=== PATIENT | female | born 1940 | race Caucasian/White ===

== ENCOUNTER 2018-04-21 19:25 | Inpatient (IN) | payer MEDICARE, BC ==
--- NOTE | 2018-04-21 20:03 | EDM.PDOC ---
ED HPI GENERAL MEDICAL PROBLEM - General Chief Complaint: Cardiovascular Problem Stated Complaint: SOB/SENT BY ENRIQUE KELLY Time Seen by Provider: 04/21/18 19:59 Source of Information: Reports: Patient, Family History Limitations: Reports: No Limitations - History of Present Illness INITIAL COMMENTS - FREE TEXT/NARRATIVE: pt was seen at the clinic today and was found to have a complete heart beat. She did have lab work done at the clinic today. She is feeling tired but she is not in alot trouble Onset: Other ( The block was discovered today. ) Duration: Hour(s):, Other (pt has been very fatiqued. ) Location: Reports: Chest Associated Symptoms: Reports: No Other Symptoms Left Upper Chest Pain Score (Numeric/FACES): 8 denies pain Pain Score (Numeric/FACES): 0 - Related Data Allergies Allergy/AdvReac Type Severity Reaction Status Date / Time Egg Derived Allergy Cannot Verified 06/04/17 10:13 Remember NSAIDS (Non-Steroidal Allergy Cannot Verified 06/04/17 10:13 Anti-Inflamma Remember Home Meds: Home Meds Folic Acid 1 mg PO DAILY 04/21/15 [History] Methotrexate Sodium [Methotrexate] 3 tab PO WEEKLY 04/21/15 [History] Valsartan/Hydrochlorothiazide [Valsartan-Hctz 320-25 mg Tab] 1 tab PO DAILY 04/30 [History] Fluticasone/Salmeterol [Advair 250-50 Diskus] 1 puff INH BID 04/21/18 [History] Past Medical History Cardiovascular History: Reports: Hypertension 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 ) Cardiovascular: Reports: Dyspnea on Exertion Endocrine: Reports: Fatigue GI/Abdominal: Reports: No Symptoms : Reports: No Symptoms Musculoskeletal: Reports: No Symptoms Skin: Reports: No Symptoms Neurological: Reports: No Symptoms Psychiatric: Reports: No Symptoms Hematologic/Lymphatic: Reports: No Symptoms ED EXAM, GENERAL - Physical Exam Exam: See Below Free Text/Narrative:: Pt arrived with a history of acomplete heart block which was discovered at the clinic today. She has a history of extreme fatique for about 10 days. Exam Limited By: No Limitations General Appearance: Alert, No Apparent Distress Ears: Normal TMs Nose: Normal Inspection Throat/Mouth: Normal Inspection Neck: Normal Inspection Respiratory/Chest: No Respiratory Distress, Other (pt has sob with activity. ) Cardiovascular: Regular Rate, Rhythm, Systolic Murmur, Other ( heart rate is 37. pt has a grade 3 systolic murmur which is not new for her. ) GI/Abdominal: Soft, Non-Tender (Female) Exam: Deferred Rectal (Female) Exam: Deferred Back Exam: Normal Inspection Extremities: Normal Inspection Neurological: Alert, Oriented, Normal Cognition Psychiatric: Normal Affect Course - Vital Signs Last Recorded V/S: Last Vital Signs Temp 35.3 C 04/23/18 04:00 Pulse 71 04/23/18 07:09 Resp 18 04/23/18 06:00 BP 133/47 L 04/23/18 06:00 Pulse Ox 97 04/23/18 06:00 - Orders/Labs/Meds Orders: Medication Orders Acetaminophen (Tylenol) 650 mg PO Q6H [facility] Last Admin: 04/23/18 03:16 Dose: 650 mg Admin: 04/22/18 22:04 Dose: Admin: 04/22/18 20:51 Dose: 650 mg Admin: 04/22/18 15:11 Dose: 650 mg Albuterol/Ipratropium (Duoneb 3.0-0.5 Mg/3 Ml) 3 ml INH QIDRT [facility] Last Admin: 04/23/18 07:09 Dose: 3 ml Admin: 04/22/18 20:50 Dose: 3 ml Admin: 04/22/18 14:34 Dose: 3 ml Albuterol/Ipratropium (Duoneb 3.0-0.5 Mg/3 Ml) 3 ml INH ASDIRECTED PRN PRN Reason: * Doxycycline Hyclate (Vibramycin) 100 mg PO BID [facility] Last Admin: 04/22/18 20:51 Dose: 100 mg Hydralazine HCl (Apresoline) 25 mg PO Q8H [facility] Last Admin: 04/22/18 23:00 Dose: 25 mg Admin: 04/22/18 15:11 Dose: 25 mg Hydrochlorothiazide (Hydrochlorothiazide) 12.5 mg PO DAILY [facility] Cefazolin Sodium/Dextrose 1 gm (/ Premix) 50 mls @ 100 mls/hr IV Q8H KARIE Stop: 04/23/18 10:29 Last Admin: 04/23/18 01:38 Dose: 100 mls/hr Infusion: 04/22/18 17:45 Dose: 100 mls/hr Admin: 04/22/18 17:15 Dose: 100 mls/hr Dextrose/Lactated Ringer's (Dextrose 5%-Lactated Ringers) 1,000 mls @ 80 mls/ hr IV ASDIRECTED [facility] Last Admin: 04/23/18 04:42 Dose: 80 mls/hr Infusion: 04/23/18 03:37 Dose: 80 mls/hr Admin: 04/22/18 15:07 Dose: 80 mls/hr Mometasone Furoate/Formoterol Fumar (Dulera 200-5 Mcg) 2 puff IH BIDRT [facility] Last Admin: 04/23/18 07:09 Dose: 2 puff Admin: 04/22/18 20:50 Dose: 2 puff Admin: 04/22/18 07:23 Dose: 2 puff Montelukast Sodium (Singulair) 10 mg PO BEDTIME [facility] Last Admin: 04/22/18 20:51 Dose: 10 mg Ondansetron HCl (Zofran) 4 mg IV Q4H PRN PRN Reason: Nausea/Vomiting Pantoprazole Sodium (Protonix) 40 mg PO ACBREAKFAST [facility] Tramadol HCl (Ultram) 50 mg PO Q4H PRN PRN Reason: Pain Valsartan (Diovan) 160 mg PO DAILY [facility] Labs: Laboratory Tests 04/21/18 04/21/18 Range/Units 19:49 20:17 Troponin I 0.021 (0.000-0.056) ng/mL TSH, Ultra Sensitive 1.027 (0.358-3.740) uIU/mL Meds: Medications Generic Name Dose Route Start Last Admin Trade Name Freq PRN Reason Stop Dose Admin Acetaminophen 650 mg 04/22/18 16:00 04/23/18 03:16 Tylenol PO 650 mg Q6H [facility] Administration Albuterol/Ipratropium 3 ml 04/22/18 15:00 04/23/18 07:09 Duoneb 3.0-0.5 Mg/3 Ml INH 3 ml QIDRT KARIE Administration Albuterol/Ipratropium 3 ml 04/22/18 14:31 Duoneb 3.0-0.5 Mg/3 Ml INH ASDIRECTED PRN * Doxycycline Hyclate 100 mg 04/22/18 21:00 04/22/18 20:51 Vibramycin PO 100 mg BID KARIE Administration Hydralazine HCl 25 mg 04/22/18 15:00 04/22/18 23:00 Apresoline PO 25 mg Q8H KARIE Administration Hydrochlorothiazide 12.5 mg 04/23/18 09:00 Hydrochlorothiazide PO DAILY KARIE Cefazolin Sodium/Dextrose 1 gm 50 mls @ 100 mls/hr 04/22/18 18:00 04/23/18 01 :38 / Premix IV 04/23/18 10:29 100 mls/hr Q8H KARIE Administration Dextrose/Lactated Ringer's 1,000 mls @ 80 mls/hr 04/22/18 14:45 04/23/18 04: 42 Dextrose 5%-Lactated Ringers IV 80 mls/hr ASDIRECTED KARIE Administration Mometasone Furoate/Formoterol Fumar 2 puff 04/22/18 07:00 04/23/18 07:09 Dulera 200-5 Mcg IH 2 puff BIDRT KARIE Administration Montelukast Sodium 10 mg 04/22/18 21:00 04/22/18 20:51 Singulair PO 10 mg BEDTIME KARIE Administration Ondansetron HCl 4 mg 04/22/18 14:29 Zofran IV Q4H PRN Nausea/Vomiting Pantoprazole Sodium 40 mg 04/23/18 07:30 Protonix PO ACBREAKFAST KARIE Tramadol HCl 50 mg 04/22/18 14:31 Ultram PO Q4H PRN Pain Valsartan 160 mg 04/23/18 09:00 Diovan PO DAILY KARIE Discontinued Medications Generic Name Dose Route Start Last Admin Trade Name Freq PRN Reason Stop Dose Admin Acetaminophen 650 mg 04/21/18 22:03 Tylenol PO Q4H PRN Pain (Mild 1-3)/fever Albuterol 2.5 mg 04/21/18 22:03 Proventil Neb Soln NEB Q4H PRN Shortness Of Breath/wheezing Albuterol/Ipratropium Confirm 04/22/18 14:28 04/22/18 14:35 Duoneb 3.0-0.5 Mg/3 Ml Administered 04/22/18 14:29 Not Given Dose 3 ml .ROUTE .STK-MED ONE Bupivacaine HCl Confirm 04/22/18 09:18 04/22/18 11:40 Marcaine 0.5% Administered 04/22/18 09:19 3.5 ml Dose Administration 50 ml .ROUTE .STK-MED ONE Fentanyl Confirm 04/22/18 09:54 Sublimaze Administered 04/22/18 09:55 Dose 100 mcg .ROUTE .STK-MED ONE Folic Acid 1 mg 04/22/18 09:00 04/22/18 09:00 Folic Acid PO Not Given DAILY [facility] Hydrochlorothiazide 25 mg 04/22/18 09:00 04/22/18 08:49 Hydrochlorothiazide PO Not Given DAILY KARIE Lactated Ringer's 1,000 mls @ 75 mls/hr 04/21/18 23:00 04/21/18 23:19 Ringers, Lactated IV 75 mls/hr ASDIRECTED KARIE Administration Potassium Phosphate 30 mmole/ 260 mls @ 60 mls/hr 04/22/18 08:00 04/22/18 08: 00 Sodium Chloride IV 04/22/18 12:19 60 mls/hr ONETIME ONE Administration Magnesium Sulfate 2 gm/ Premix 50 mls @ 12.5 mls/hr 04/22/18 08:00 04/22/18 08:29 IV 04/22/18 11:59 12.5 mls/hr ONETIME ONE Administration Cefazolin Sodium/Dextrose 2 gm 50 mls @ 100 mls/hr 04/22/18 11:00 04/22/18 11 :14 / Premix IV 04/22/18 11:29 100 mls/hr ONCALL ONE Administration Potassium Chloride 20 meq/ 112 mls @ 50 mls/hr 04/22/18 08:30 Lidocaine HCl 2 ml/ Sodium IV 04/22/18 10:29 Chloride Q2H KARIE Linezolid Confirm 04/22/18 09:18 Zyvox Administered 04/22/18 09:19 Dose 300 mls @ as directed .ROUTE .STK-MED ONE Lactated Ringer's Confirm 04/22/18 12:39 Ringers, Lactated Administered 04/22/18 12:40 Dose 1,000 mls @ as directed .ROUTE .STK-MED ONE Lidocaine/Epinephrine Confirm 04/22/18 09:18 04/22/18 11:40 Xylocaine 1% With Epinephrine 1:100,000 Administered 04/22/18 09:19 3.5 ml Dose Administration 50 ml .ROUTE .STK-MED ONE Linezolid 600 mg 04/22/18 12:42 04/22/18 12:42 Zyvox IRR 04/22/18 12:43 600 mg .STK-MED ONE Administration Midazolam HCl Confirm 04/22/18 09:54 Versed 1 Mg/Ml Administered 04/22/18 09:55 Dose 2 mg .ROUTE .STK-MED ONE Mometasone Furoate/Formoterol Fumar 2 puff 04/21/18 22:15 04/21/18 23:31 Dulera 200-5 Mcg IH 2 inh BID KARIE Administration Ondansetron HCl 4 mg 04/21/18 22:03 Zofran Odt PO Q6H PRN Nausea able to take PO Ondansetron HCl 4 mg 04/21/18 22:03 Zofran IV Q6H PRN Nausea/Vomiting Oxycodone HCl 5 mg 04/21/18 22:03 Oxycodone PO Q4H PRN Pain (moderate 4-6) Polyethylene Glycol 17 gm 04/21/18 22:03 Miralax PO DAILY PRN Constipation Propofol Confirm 04/22/18 09:54 Diprivan 20 Ml Administered 04/22/18 09:55 Dose 200 mg .ROUTE .STK-MED ONE Propofol Confirm 04/22/18 12:38 Diprivan 20 Ml Administered 04/22/18 12:39 Dose 200 mg .ROUTE .STK-MED ONE Senna/Docusate Sodium 1 tab 04/21/18 22:03 Senna Plus PO BID PRN Constipation Sodium Chloride 10 ml 04/21/18 20:45 04/21/18 23:19 Saline Flush FLUSH 10 ml ASDIRECTED PRN Administration Keep Vein Open Valsartan 320 mg 04/22/18 09:00 04/22/18 08:49 Diovan PO Not Given DAILY KARIE - Re-Assessments/Exams Free Text/Narrative Re-Assessment/Exam: 04/21/18 20:41 ekg shows a complete heart block with a rate of 37. She is sob. with activities 04/21/18 20:51 . Her lab work looked good. Departure - Departure Time of Disposition: 20:52 Disposition: Admitted As Inpatient 64 Condition: Fair Clinical Impression: Complete heart block by electrocardiogram Rheumatoid arthritis Qualifiers: Rheumatoid arthritis location: multiple sites Rheumatoid factor presence: unspecified presence Qualified Code(s): M06.9 - Rheumatoid arthritis, unspecified Aortic stenosis Qualifiers: Cardiac valve disease etiology: etiology unspecified Qualified Code(s): I35.0 - Nonrheumatic aortic (valve) stenosis
[2018-04-21] MEDS ORDERED: Sodium Chloride 0.9% 10 ML Syringe FLUSH PRN (20:45)
--- NOTE | 2018-04-21 21:16 | PCM.HP ---
H&P History of Present Illness - General Date of Service: 04/21/18 Admit Problem/Dx: Admission Diagnosis/Problem Admission Diagnosis/Problem Complete heart block by electrocardiogram Source of Information: Patient, Family, Provider History Limitations: Reports: No Limitations - History of Present Illness Initial Comments - Free Text/Narative: Michell presented to the emergency room this evening at the recommendation of her primary care provider after he discovered third-degree heart block on her electrocardiogram this afternoon. She reports that she has been fatigued for at least the last week and more likely the last 2 or 3 weeks. She has had an increase in her dyspnea with exertion and has been sleeping 12 hours per day and does not feel rested. She is sleepy all day long and unable to complete some of her ADLs because of her fatigue. She does not recall any episodes of chest pain or chest pressure over the past several months. She has not had any fevers or chills. No complaints of abdominal pain or nausea. No dysuria or frequency. No history of heart disease. She has never had surgery before. No recent tick exposure that she is aware of. No new medications. Workup in the emergency room revealed fairly normal laboratory studies. EKG and cardiac monitoring revealed third-degree heart block with a heart rate in the low to mid 30s. She will be admitted for permanent pacemaker insertion. - Related Data Allergies/Adverse Reactions: Allergies Allergy/AdvReac Type Severity Reaction Status Date / Time Egg Derived Allergy Cannot Verified 06/04/17 10:13 Remember NSAIDS (Non-Steroidal Allergy Cannot Verified 06/04/17 10:13 Anti-Inflamma Remember Home Medications: Home Meds Folic Acid 1 mg PO DAILY 04/21/15 [History] Methotrexate Sodium [Methotrexate] 3 tab PO WEEKLY 04/21/15 [History] Valsartan/Hydrochlorothiazide [Valsartan-Hctz 320-25 mg Tab] 1 tab PO DAILY 04/30 [History] Fluticasone/Salmeterol [Advair 250-50 Diskus] 1 puff INH BID 04/21/18 [History] Past Medical History Cardiovascular History: Reports: Hypertension Other Cardiovascular History: mitral valve stenosis. tricuspid regergitation. aortic stenosis. 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 Pertinent positives and negatives are noted in the history of present illness. All other systems were reviewed and were negative except as noted. Exam - Exam Exam: See Below - Vital Signs Vital Signs: Last Vital Signs Temp 36.8 C 04/21/18 19:47 Pulse 85 04/21/18 20:59 Resp 19 04/21/18 20:59 BP 175/125 H 04/21/18 20:59 Pulse Ox 97 04/21/18 20:59 - Exam Quality Assessment: No: Supplemental Oxygen General: Alert, Oriented, Cooperative. No: Mild Distress HEENT: Conjunctiva Clear. No: Mucosa Moist & [place] (dry), Scleral Icterus Neck: Supple, Trachea Midline. No: Lymphadenopathy Lungs: Clear to Auscultation, Normal Respiratory Effort Cardiovascular: Regular Rhythm, Bradycardia, Systolic Murmur (harsh BRIGITTE RUSB) GI/Abdominal Exam: Normal Bowel Sounds, Soft, Non-Tender, No Distention Back Exam: Decreased Range of Motion. No: Normal Inspection (kyphosis) Extremities: No Pedal Edema, Other (ulna deviation of digits on both hands) Peripheral Pulses: 1+: Dorsalis Pedis (L), Dorsalis Pedis (R) Skin: Warm, Dry Neuro Extensive - Mental Status: Alert, Oriented x3, Nl Response to Commands Neuro Extensive - Motor, Sensory, Reflexes: CN II-XII Intact. No: Dysarthria, Abnormal Motor, Tremor Psychiatric: Alert, Normal Affect - Patient Data Lab Results Last 24 hrs: Laboratory Results - last 24 hr 04/21/18 04/21/18 Range/Units 19:49 20:17 Troponin I 0.021 (0.000-0.056) ng/mL TSH, Ultra Sensitive 1.027 (0.358-3.740) uIU/mL Imaging Impressions Last 24 hrs: CXR - images personally reviewed - heart size is normal, no mass, infiltrate or effusion. No CHF. EKG INTERPRETATION EKG Date: 04/21/18 Rhythm: Other (3rd degree heart block) Rate (Beats/Min): 38 [place]: LAD-Left [place] Deviation P-Wave: Present QRS: LBBB ST-T: Normal QT: Normal Comparison: Change From Previous EKG *Q Meaningful Use (ADM) - VTE *Q VTE Pharmacological Contraindications *Q: Patient Scheduled Surgery - VTE Risk Assess *Q Each Risk Factor Represents 1 Point: Minor Surgery Planned, Abnormal Pulmonary Function (COPD) Total Score 1 Point Risk Factors: 2 Each Risk Factor Represents 2 Points: None Total Score 2 Point Risk Factors: 0 Each Risk Factor Represents 3 Points: Age 75 Years or Greater Total Score 3 Point Risk Factors: 3 Each Risk Factor Represents 5 Points: None Total Score 5 Point Risk Factors: 0 Venous Thromboembolism Risk Factor Score *Q: 5 - Problem List (1) Complete heart block by electrocardiogram SNOMED Code(s): 639965460 ICD Code: I44.2 - ATRIOVENTRICULAR BLOCK, COMPLETE Status: Acute Current Visit: Yes (2) Rheumatoid arthritis SNOMED Code(s): 46954532 ICD Code: M06.9 - RHEUMATOID ARTHRITIS, UNSPECIFIED Status: Chronic Current Visit: Yes Qualifiers: Rheumatoid arthritis location: multiple sites Rheumatoid factor presence: unspecified presence Qualified Code(s): M06.9 - Rheumatoid arthritis, unspecified (3) Aortic stenosis SNOMED Code(s): 64372140 ICD Code: I35.0 - NONRHEUMATIC AORTIC (VALVE) STENOSIS Status: Chronic Current Visit: Yes Qualifiers: Cardiac valve disease etiology: etiology unspecified Qualified Code(s): I35.0 - Nonrheumatic aortic (valve) stenosis (4) Tobacco dependence SNOMED Code(s): 22731949 ICD Code: F17.200 - NICOTINE DEPENDENCE, UNSPECIFIED, UNCOMPLICATED Status : Chronic Current Visit: Yes Problem List Initiated/Reviewed/Updated: Yes Orders Last 24hrs: Active Orders 24 hr Category Date Time Status Patient Status Manage Transfer [TRANSFER] Routine ADT 04/21/18 21:06 Ordered EKG Documentation Completion [RC] ASDIRECTED Care 04/21/18 19:50 Active Chest 1V Frontal [CR] Stat Exams 04/21/18 19:57 Taken Sodium Chloride 0.9% [Saline Flush] Med 04/21/18 20:45 Active 10 ml FLUSH ASDIRECTED PRN Saline Lock Insert [OM.PC] Routine Oth 04/21/18 20:45 Ordered Resuscitation Status Routine Resus Stat 04/21/18 21:07 Ordered EKG 12 Lead [EK] Routine Ther 04/21/18 19:50 Ordered Medication Orders Sodium Chloride (Saline Flush) 10 ml FLUSH ASDIRECTED PRN PRN Reason: Keep Vein Open Assessment/Plan Comment:: ASSESSMENT AND PLAN - Third degree heart block - symptomatic with fatigue and dyspnea on exertion. No evidence for ischemia and no recent symptoms to suggest ischemic heart disease. She does have a history of rheumatoid arthritis. Not on rate slowing medications. No history of surgeries. I believe she is in optimal achievable medical condition for the somewhat urgent surgery. -Cardiac monitoring -Pacemaker placement in the morning Moderate aortic stenosis - long-standing issue, no reason to suspect acute progression of this disease. Should not be a contraindication to the procedure. -Cardiac monitoring and management as above Rheumatoid arthritis - chronic, multiple sites involved. She is on immunosuppressive therapy as an outpatient. -Hold immunosuppression for now, restart after hospital discharge Tobacco dependence - she will need education and recommendations regarding cessation. Maintenance issues - - DVT prophylaxis - mechanical with upcoming surgery - GI prophylaxis - not indicated - Nutrition - nothing by mouth after midnight - [place] catheter - not indicated CODE STATUS - full code Admission justification - This patient will be admitted for inpatient services and is medically appropriate meeting medical necessity for inpatient admission as outlined in my documentation. I reasonably expect the patient will require inpatient services that span a period time over 2 midnights. I reasonably expect this patient to be discharged or transferred within 96 hours [facility]. Disposition - I would anticipate discharge to home after the hospital stay Primary care physician - Jose Prakash M.D.
[2018-04-21] MEDS ORDERED: Acetaminophen 325 MG Tab PO PRN (22:03)
[2018-04-21] MEDS ORDERED: Ondansetron 4 MG/2 ML SDV IV PRN (22:03)
[2018-04-21] MEDS ORDERED: Polyethylene Glycol 3350 Powder 17 GM Packet PO PRN (22:03)
[2018-04-21] MEDS ORDERED: Albuterol 0.083% 2.5 MG/3 ML Neb Soln NEB PRN (22:03)
[2018-04-21] MEDS ORDERED: Ondansetron 4 MG Tab.DIS PO PRN (22:03)
[2018-04-21] MEDS ORDERED: oxyCODONE 5 MG Tab PO PRN (22:03)
[2018-04-21] MEDS ORDERED: Formoterol/Mometasone 200-5 MCG 8.8 GM Inhaler IH SCH (22:15)
[2018-04-21] MEDS ORDERED: Lactated Ringers 1,000 ML IV SCH (23:00)
[2018-04-22] MEDS: Hydrochlorothiazide 25 MG Tab PO SCH ×2 (07:21→08:49)
[2018-04-22] MEDS: Formoterol/Mometasone 200-5 MCG 8.8 GM Inhaler IH SCH ×2 (07:23→20:50)
[2018-04-22] MEDS ORDERED: Magnesium Sulfate/Water 2 GM in Premix Bag 1 BAG IV ONE (08:00)
[2018-04-22] MEDS ORDERED: Potassium Phosphates 30 MMOLE in Sodium Chloride 0.9% 250 ML IV ONE (08:00)
[2018-04-22] MEDS ORDERED: Potassium Chloride 20 MEQ, Lidocaine 1% 2 ML in Sodium Chloride 0.9% 100 ML IV SCH (08:30)
[2018-04-22] MEDS ORDERED: Folic Acid 1 MG Tab PO SCH (09:00)
--- NOTE | 2018-04-22 09:06 | PCM.PN ---
- General Info Date of Service: 04/22/18 Functional Status: Reports: Pain Controlled - Review of Systems General: Reports: Weakness Systems Review Comment:: There were no acute events overnight. Patient has remained stable though she has remained significantly bradycardic with heart rates in the mid 30s. No complaints of chest pain or shortness of breath at rest. No fevers overnight. Pacemaker insertion planned for later in the morning. - Patient Data Vitals - Most Recent: Last Vital Signs Temp 35.8 C 04/22/18 08:00 Pulse 34 L 04/22/18 08:00 Resp 19 04/22/18 08:00 BP 191/67 H 04/22/18 08:49 Pulse Ox 95 04/22/18 08:00 Weight - Most Recent: 86 kg I&O - Last 24 Hours: Intake & Output 04/21/18 04/22/18 04/22/18 22:59 06:59 14:59 Intake Total 853 Output Total 250 Balance 603 Lab Results Last 24 Hours: Laboratory Results - last 24 hr 04/21/18 04/21/18 04/22/18 Range/Units 19:49 20:17 05:00 WBC 5.1 (4.5-11.0) K/uL RBC 3.75 (3.30-5.50) M/uL Hgb 11.0 L (12.0-15.0) g/dL Hct 34.7 L (36.0-48.0) % MCV 93 (80-98) fL MCH 29 (27-31) pg MCHC 32 (32-36) % Plt Count 151 (150-400) K/uL Sodium (140-148) mmol/L Potassium (3.6-5.2) mmol/L Chloride (100-108) mmol/L Carbon Dioxide (21-32) mmol/L Anion Gap (5.0-14.0) mmol/L BUN (7-18) mg/dL Creatinine (0.6-1.0) mg/dL Est Cr Clr Drug Dosing mL/min Estimated GFR (MDRD) (>60) Glucose (74-106) mg/dL Calcium (8.5-10.1) mg/dL Phosphorus (2.5-4.9) mg/dL Magnesium (1.8-2.4) mg/dL Troponin I 0.021 (0.000-0.056) ng/mL TSH, Ultra Sensitive 1.027 (0.358-3.740) uIU/mL 04/22/18 04/22/18 04/22/18 Range/Units 05:00 06:25 06:25 WBC (4.5-11.0) K/uL RBC (3.30-5.50) M/uL Hgb (12.0-15.0) g/dL Hct (36.0-48.0) % MCV (80-98) fL MCH (27-31) pg MCHC (32-36) % Plt Count (150-400) K/uL Sodium 142 (140-148) mmol/L Potassium 3.4 L (3.6-5.2) mmol/L Chloride 107 (100-108) mmol/L Carbon Dioxide 26 (21-32) mmol/L Anion Gap 12.4 (5.0-14.0) mmol/L BUN 29 H (7-18) mg/dL Creatinine 1.2 H (0.6-1.0) mg/dL Est Cr Clr Drug Dosing 27.30 mL/min Estimated GFR (MDRD) 43 L (>60) Glucose 106 (74-106) mg/dL Calcium 8.3 L (8.5-10.1) mg/dL Phosphorus 3.5 (2.5-4.9) mg/dL Magnesium 1.7 L (1.8-2.4) mg/dL Troponin I (0.000-0.056) ng/mL TSH, Ultra Sensitive (0.358-3.740) uIU/mL Med Orders - Current: Current Medications Acetaminophen (Tylenol) 650 mg PO Q4H PRN PRN Reason: Pain (Mild 1-3)/fever Albuterol (Proventil Neb Soln) 2.5 mg NEB Q4H PRN PRN Reason: Shortness Of Breath/wheezing Folic Acid (Folic Acid) 1 mg PO DAILY [facility] Hydrochlorothiazide (Hydrochlorothiazide) 25 mg PO DAILY [facility] Last Admin: 04/22/18 08:49 Dose: Not Given Lactated Ringer's (Ringers, Lactated) 1,000 mls @ 75 mls/hr IV ASDIRECTED KARIE Last Admin: 04/21/18 23:19 Dose: 75 mls/hr Potassium Phosphate 30 mmole/ (Sodium Chloride) 260 mls @ 60 mls/hr IV ONETIME ONE Stop: 04/22/18 12:19 Last Admin: 04/22/18 08:00 Dose: 60 mls/hr Magnesium Sulfate 2 gm/ Premix 50 mls @ 12.5 mls/hr IV ONETIME ONE Stop: 04/22/18 11:59 Last Admin: 04/22/18 08:29 Dose: 12.5 mls/hr Cefazolin Sodium/Dextrose 2 gm (/ Premix) 50 mls @ 100 mls/hr IV ONCALL ONE Stop: 04/22/18 11:29 Mometasone Furoate/Formoterol Fumar (Dulera 200-5 Mcg) 2 puff IH BIDRT [facility] Last Admin: 04/22/18 07:23 Dose: 2 puff Ondansetron HCl (Zofran Odt) 4 mg PO Q6H PRN PRN Reason: Nausea able to take PO Ondansetron HCl (Zofran) 4 mg IV Q6H PRN PRN Reason: Nausea/Vomiting Oxycodone HCl (Oxycodone) 5 mg PO Q4H PRN PRN Reason: Pain (moderate 4-6) Polyethylene Glycol (Miralax) 17 gm PO DAILY PRN PRN Reason: Constipation Senna/Docusate Sodium (Senna Plus) 1 tab PO BID PRN PRN Reason: Constipation Sodium Chloride (Saline Flush) 10 ml FLUSH ASDIRECTED PRN PRN Reason: Keep Vein Open Last Admin: 04/21/18 23:19 Dose: 10 ml Valsartan (Diovan) 320 mg PO DAILY [facility] Last Admin: 04/22/18 08:49 Dose: Not Given Discontinued Medications Potassium Chloride 20 meq/Lidocaine HCl 2 ml/ Sodium Chloride 112 mls @ 50 mls/ hr IV Q2H [facility] Stop: 04/22/18 10:29 Mometasone Furoate/Formoterol Fumar (Dulera 200-5 Mcg) 2 puff IH BID [facility] Last Admin: 04/21/18 23:31 Dose: 2 inh - Exam Quality Assessment: No: Supplemental Oxygen General: Alert, Oriented, Cooperative, No Acute Distress Lungs: Normal Respiratory Effort Cardiovascular: Regular Rhythm, Bradycardia GI/Abdominal Exam: Soft, No Distention Psy/Mental Status: Alert, Normal Affect - Problem List & Annotations (1) Complete heart block by electrocardiogram SNOMED Code(s): 956667356 Code(s): I44.2 - ATRIOVENTRICULAR BLOCK, COMPLETE Status: Acute Current Visit: Yes (2) Rheumatoid arthritis SNOMED Code(s): 48427991 Code(s): M06.9 - RHEUMATOID ARTHRITIS, UNSPECIFIED Status: Chronic Current Visit: Yes Qualifiers: Rheumatoid arthritis location: multiple sites Rheumatoid factor presence: unspecified presence Qualified Code(s): M06.9 - Rheumatoid arthritis, unspecified (3) Aortic stenosis SNOMED Code(s): 19897730 Code(s): I35.0 - NONRHEUMATIC AORTIC (VALVE) STENOSIS Status: Chronic Current Visit: Yes Qualifiers: Cardiac valve disease etiology: etiology unspecified Qualified Code(s): I35.0 - Nonrheumatic aortic (valve) stenosis (4) Tobacco dependence SNOMED Code(s): 02345686 Code(s): F17.200 - NICOTINE DEPENDENCE, UNSPECIFIED, UNCOMPLICATED Status: Chronic Current Visit: Yes - Problem List Review Problem List Initiated/Reviewed/Updated: Yes - My Orders Last 24 Hours: My Active Orders 04/21/18 21:07 Resuscitation Status Routine 04/21/18 22:03 Patient Status [ADT] Routine Bedrest Bedside Commode [RC] ASDIRECTED Cardiac Monitoring [RC] CONTINUOUS Intake and Output [RC] QSHIFT Notify Provider Consults [RC] ASDIRECTED Notify Provider Vital Signs [RC] ASDIRECTED Oxygen Therapy [RC] PRN RT Aerosol Therapy [RC] ASDIRECTED Up With Assistance [RC] ASDIRECTED VTE/DVT Education [RC] Per Unit Routine Vital Signs [RC] Q2HR Consult to Physician [CONS] Routine Acetaminophen [Tylenol] 650 mg PO Q4H PRN Albuterol [Proventil Neb Soln] 2.5 mg NEB Q4H PRN Docusate Sodium/Sennosides [Senna Plus] 1 tab PO BID PRN Ondansetron [Zofran ODT] 4 mg PO Q6H PRN Ondansetron [Zofran] 4 mg IV Q6H PRN Polyethylene Glycol 3350 [MiraLAX] 17 gm PO DAILY PRN oxyCODONE 5 mg PO Q4H PRN Sequential Compression Device [OM.PC] Per Unit Routine VTE Pharmacological Contraindications [AST] Per Unit Routine 04/21/18 23:00 Lactated Ringers [Ringers, Lactated] 1,000 ml IV ASDIRECTED 04/21/18 Dinner Regular Diet [DIET] 04/22/18 07:00 Mometasone/Formoterol [Dulera 200-5 MCG] 2 puff IH BIDRT 04/22/18 09:00 Folic Acid 1 mg PO DAILY Hydrochlorothiazide 25 mg PO DAILY Valsartan [Diovan] 320 mg PO DAILY 04/22/18 Breakfast Nothing per Oral After Midnight Diet [DIET] 04/23/18 05:00 BASIC METABOLIC PANEL,BMP [CHEM] Timed HGB [HEMOGLOBIN] [HEME] Timed - Plan Plan:: ASSESSMENT AND PLAN - Third degree heart block - symptomatic with fatigue and dyspnea on exertion. Stable overnight with persistent severe bradycardia. -Cardiac monitoring -Pacemaker placement today Moderate aortic stenosis - long-standing issue, no reason to suspect acute progression of this disease. Should not be a contraindication to the procedure. -Cardiac monitoring and management as above Rheumatoid arthritis - chronic, multiple sites involved. She is on immunosuppressive therapy as an outpatient. -Hold immunosuppression for now, restart after hospital discharge Tobacco dependence - she will need education and recommendations regarding cessation. Maintenance issues - - DVT prophylaxis - mechanical with upcoming surgery - GI prophylaxis - not indicated - Nutrition - nothing by mouth after midnight Disposition - I would anticipate discharge to home after the hospital stay Jerel Prakash M.D.
[2018-04-22] MEDS ORDERED: Bupivacaine 0.5% 50 ML MDV ONE (09:18)
[2018-04-22] MEDS ORDERED: Lidocaine 1% with EPINEPHrine 1:100,000 50 ML MDV ONE (09:18)
--- NOTE | 2018-04-22 09:25 | CR ---
CHEST: Portable CLINICAL HISTORY:Complete heart block COMPARISON:2014 FINDINGS: Heart size and pulmonary vascularity are normal. There are small bibasal effusions. No inf iltrates are seen. There is mild interstitial prominence which is felt to be chronic. IMPRESSION: Changes of COPD Small bibasal pleural effusions
[2018-04-22] MEDS ORDERED: fentaNYL 100 MCG/2 ML SDV ONE (09:54)
[2018-04-22] MEDS ORDERED: Midazolam 1 MG/ML 2 ML SDV ONE (09:54)
[2018-04-22] MEDS ORDERED: Propofol 200 MG/20 ML SDV ONE ×2 (09:54→12:38)
[2018-04-22] MEDS ORDERED: ceFAZolin 2 GM in Premix Bag 1 BAG IV ONE (11:00)
[2018-04-22] MEDS ORDERED: Lactated Ringers 1,000 ML ONE (12:39)
[2018-04-22] MEDS ORDERED: Linezolid 200 MG/100 ML Bag IRR ONE (12:42)
--- NOTE | 2018-04-22 14:03 | CR ---
CHEST: Portable CLINICAL HISTORY:Status post pacemaker insertion COMPARISON:04/21/2018 FINDINGS: Vascularity is cephalized. There is mild interstitial prominence. Patient a small bibasal effusions. There has been interval insertion of a 2-lead cardiac pacer. There is a lead in the right ventricle. The more proximal lead is superior position and likely within the superior vena cava. Ther e is no pneumothorax.. IMPRESSION: Interval permanent cardiac pacer placement. Proximal lead appears to be in the superior vena cava. Mild pulmonary venous congestion and mild interstitial prominence Small bibasal effusions right greater than left
[2018-04-22] MEDS ORDERED: Ondansetron 4 MG/2 ML SDV IV PRN (14:29)
[2018-04-22] MEDS ORDERED: traMADol 50 MG Tab PO PRN (14:31)
[2018-04-22] MEDS ORDERED: Albuterol/Ipratropium 3.0-0.5 MG/3 ML Neb Soln INH PRN (14:31)
[2018-04-22] MEDS: Albuterol/Ipratropium 3.0-0.5 MG/3 ML Neb Soln ONE ×2 (14:34→14:35)
[2018-04-22] MEDS: Albuterol/Ipratropium 3.0-0.5 MG/3 ML Neb Soln INH SCH ×2 (14:34→20:50)
[2018-04-22] MEDS: Dextrose 5%-Lactated Ringers 1,000 ML IV SCH (15:07)
[2018-04-22] MEDS: Acetaminophen 325 MG Tab PO SCH ×3 (15:11→22:04)
[2018-04-22] MEDS: hydrALAZINE 25 MG Tab PO SCH ×2 (15:11→23:00)
[2018-04-22] MEDS: ceFAZolin 1 GM in Premix Bag 1 BAG IV SCH (17:15)
[2018-04-22] MEDS: Montelukast 10 MG Tab PO SCH (20:51)
[2018-04-22] MEDS: Doxycycline 100 MG Cap PO SCH (20:51)
[2018-04-23] MEDS: ceFAZolin 1 GM in Premix Bag 1 BAG IV SCH ×2 (01:38→10:07)
[2018-04-23] MEDS: Acetaminophen 325 MG Tab PO SCH ×5 (03:16→22:52)
[2018-04-23] MEDS: Dextrose 5%-Lactated Ringers 1,000 ML IV SCH (04:42)
[2018-04-23] MEDS: Formoterol/Mometasone 200-5 MCG 8.8 GM Inhaler IH SCH ×2 (07:09→20:40)
[2018-04-23] MEDS: Albuterol/Ipratropium 3.0-0.5 MG/3 ML Neb Soln INH SCH ×4 (07:09→20:39)
[2018-04-23] MEDS: hydrALAZINE 25 MG Tab PO SCH ×3 (07:25→22:31)
[2018-04-23] MEDS: Pantoprazole 40 MG Tab.CR PO SCH (07:25)
--- NOTE | 2018-04-23 09:07 | PCM.PN ---
- General Info Date of Service: 04/23/18 Functional Status: Reports: Pain Controlled, Tolerating Diet - Review of Systems General: Denies: Fever Systems Review Comment:: There were no acute events overnight. Patient had successful placement of a dual -chamber pacemaker yesterday. She was in a paced rhythm overnight. She reports moderate discomfort in the left chest where the pacemaker generator was placed. She has not had any fevers. Appetite has been okay. Blood pressure significantly elevated yesterday even after surgery and hydralazine was initiated. Blood pressure has been trending down since that time. - Patient Data Vitals - Most Recent: Last Vital Signs Temp 35.5 C 04/23/18 07:00 Pulse 89 04/23/18 08:00 Resp 22 H 04/23/18 07:00 BP 170/49 H 04/23/18 08:00 Pulse Ox 97 04/23/18 07:00 Weight - Most Recent: 86 kg I&O - Last 24 Hours: Intake & Output 04/22/18 04/23/18 04/23/18 22:59 06:59 14:59 Intake Total 1232 961 Output Total 600 600 Balance 632 361 Lab Results Last 24 Hours: Laboratory Results - last 24 hr 04/23/18 04/23/18 Range/Units 04:27 04:27 Hgb 10.5 L (12.0-15.0) g/dL Sodium 142 (140-148) mmol/L Potassium 3.9 (3.6-5.2) mmol/L Chloride 107 (100-108) mmol/L Carbon Dioxide 27 (21-32) mmol/L Anion Gap 8.0 (5.0-14.0) mmol/L BUN 19 H (7-18) mg/dL Creatinine 1.3 H (0.6-1.0) mg/dL Est Cr Clr Drug Dosing 25.20 mL/min Estimated GFR (MDRD) 40 L (>60) Glucose 126 H (74-106) mg/dL Calcium 7.6 L (8.5-10.1) mg/dL Med Orders - Current: Current Medications Acetaminophen (Tylenol) 650 mg PO Q6H [facility] Last Admin: 04/23/18 03:16 Dose: 650 mg Albuterol/Ipratropium (Duoneb 3.0-0.5 Mg/3 Ml) 3 ml INH QIDRT [facility] Last Admin: 04/23/18 07:09 Dose: 3 ml Albuterol/Ipratropium (Duoneb 3.0-0.5 Mg/3 Ml) 3 ml INH ASDIRECTED PRN PRN Reason: * Doxycycline Hyclate (Vibramycin) 100 mg PO BID [facility] Last Admin: 04/22/18 20:51 Dose: 100 mg Hydralazine HCl (Apresoline) 25 mg PO Q8H [facility] Last Admin: 04/23/18 07:25 Dose: 25 mg Hydrochlorothiazide (Hydrochlorothiazide) 12.5 mg PO DAILY [facility] Cefazolin Sodium/Dextrose 1 gm (/ Premix) 50 mls @ 100 mls/hr IV Q8H [facility] Stop: 04/23/18 10:29 Last Admin: 04/23/18 01:38 Dose: 100 mls/hr Mometasone Furoate/Formoterol Fumar (Dulera 200-5 Mcg) 2 puff IH BIDRT [facility] Last Admin: 04/23/18 07:09 Dose: 2 puff Montelukast Sodium (Singulair) 10 mg PO BEDTIME [facility] Last Admin: 04/22/18 20:51 Dose: 10 mg Ondansetron HCl (Zofran) 4 mg IV Q4H PRN PRN Reason: Nausea/Vomiting Pantoprazole Sodium (Protonix) 40 mg PO ACBREAKFAST [facility] Last Admin: 04/23/18 07:25 Dose: 40 mg Tramadol HCl (Ultram) 50 mg PO Q4H PRN PRN Reason: Pain Valsartan (Diovan) 160 mg PO DAILY [facility] Discontinued Medications Acetaminophen (Tylenol) 650 mg PO Q4H PRN PRN Reason: Pain (Mild 1-3)/fever Albuterol (Proventil Neb Soln) 2.5 mg NEB Q4H PRN PRN Reason: Shortness Of Breath/wheezing Albuterol/Ipratropium (Duoneb 3.0-0.5 Mg/3 Ml) Confirm Administered Dose 3 ml .ROUTE .STK-MED ONE Stop: 04/22/18 14:29 Last Admin: 04/22/18 14:35 Dose: Not Given Bupivacaine HCl (Marcaine 0.5%) Confirm Administered Dose 50 ml .ROUTE .STK-MED ONE Stop: 04/22/18 09:19 Last Admin: 04/22/18 11:40 Dose: 3.5 ml Fentanyl (Sublimaze) Confirm Administered Dose 100 mcg .ROUTE .STK-MED ONE Stop: 04/22/18 09:55 Folic Acid (Folic Acid) 1 mg PO DAILY [facility] Last Admin: 04/22/18 09:00 Dose: Not Given Hydrochlorothiazide (Hydrochlorothiazide) 25 mg PO DAILY [facility] Last Admin: 04/22/18 08:49 Dose: Not Given Lactated Ringer's (Ringers, Lactated) 1,000 mls @ 75 mls/hr IV ASDIRECTED [facility] Last Admin: 04/21/18 23:19 Dose: 75 mls/hr Potassium Phosphate 30 mmole/ (Sodium Chloride) 260 mls @ 60 mls/hr IV ONETIME ONE Stop: 04/22/18 12:19 Last Admin: 04/22/18 08:00 Dose: 60 mls/hr Magnesium Sulfate 2 gm/ Premix 50 mls @ 12.5 mls/hr IV ONETIME ONE Stop: 04/22/18 11:59 Last Admin: 04/22/18 08:29 Dose: 12.5 mls/hr Cefazolin Sodium/Dextrose 2 gm (/ Premix) 50 mls @ 100 mls/hr IV ONCALL ONE Stop: 04/22/18 11:29 Last Admin: 04/22/18 11:14 Dose: 100 mls/hr Potassium Chloride 20 meq/Lidocaine HCl 2 ml/ Sodium Chloride 112 mls @ 50 mls/ hr IV Q2H [facility] Stop: 04/22/18 10:29 Linezolid (Zyvox) Confirm Administered Dose 300 mls @ as directed .ROUTE .STK- MED ONE Stop: 04/22/18 09:19 Lactated Ringer's (Ringers, Lactated) Confirm Administered Dose 1,000 mls @ as directed .ROUTE .STK-MED ONE Stop: 04/22/18 12:40 Dextrose/Lactated Ringer's (Dextrose 5%-Lactated Ringers) 1,000 mls @ 80 mls/ hr IV ASDIRECTED [facility] Last Admin: 04/23/18 04:42 Dose: 80 mls/hr Lidocaine/Epinephrine (Xylocaine 1% With Epinephrine 1:100,000) Confirm Administered Dose 50 ml .ROUTE .STK-MED ONE Stop: 04/22/18 09:19 Last Admin: 04/22/18 11:40 Dose: 3.5 ml Linezolid (Zyvox) 600 mg IRR .STK-MED ONE Stop: 04/22/18 12:43 Last Admin: 04/22/18 12:42 Dose: 600 mg Midazolam HCl (Versed 1 Mg/Ml) Confirm Administered Dose 2 mg .ROUTE .STK-MED ONE Stop: 04/22/18 09:55 Mometasone Furoate/Formoterol Fumar (Dulera 200-5 Mcg) 2 puff IH BID [facility] Last Admin: 04/21/18 23:31 Dose: 2 inh Ondansetron HCl (Zofran Odt) 4 mg PO Q6H PRN PRN Reason: Nausea able to take PO Ondansetron HCl (Zofran) 4 mg IV Q6H PRN PRN Reason: Nausea/Vomiting Oxycodone HCl (Oxycodone) 5 mg PO Q4H PRN PRN Reason: Pain (moderate 4-6) Polyethylene Glycol (Miralax) 17 gm PO DAILY PRN PRN Reason: Constipation Propofol (Diprivan 20 Ml) Confirm Administered Dose 200 mg .ROUTE .STK-MED ONE Stop: 04/22/18 09:55 Propofol (Diprivan 20 Ml) Confirm Administered Dose 200 mg .ROUTE .STK-MED ONE Stop: 04/22/18 12:39 Senna/Docusate Sodium (Senna Plus) 1 tab PO BID PRN PRN Reason: Constipation Sodium Chloride (Saline Flush) 10 ml FLUSH ASDIRECTED PRN PRN Reason: Keep Vein Open Last Admin: 04/21/18 23:19 Dose: 10 ml Valsartan (Diovan) 320 mg PO DAILY [facility] Last Admin: 04/22/18 08:49 Dose: Not Given - Exam Quality Assessment: No: Supplemental Oxygen General: Alert, Oriented, Cooperative, No Acute Distress Lungs: Clear to Auscultation, Normal Respiratory Effort Cardiovascular: Regular Rate, Regular Rhythm, Murmurs GI/Abdominal Exam: Soft, No Distention Extremities: No Pedal Edema Psy/Mental Status: Alert, Normal Affect - Problem List & Annotations (1) Complete heart block by electrocardiogram SNOMED Code(s): 079763768 Code(s): I44.2 - ATRIOVENTRICULAR BLOCK, COMPLETE Status: Acute Current Visit: Yes (2) Rheumatoid arthritis SNOMED Code(s): 82594604 Code(s): M06.9 - RHEUMATOID ARTHRITIS, UNSPECIFIED Status: Chronic Current Visit: Yes Qualifiers: Rheumatoid arthritis location: multiple sites Rheumatoid factor presence: unspecified presence Qualified Code(s): M06.9 - Rheumatoid arthritis, unspecified (3) Aortic stenosis SNOMED Code(s): 98803473 Code(s): I35.0 - NONRHEUMATIC AORTIC (VALVE) STENOSIS Status: Chronic Current Visit: Yes Qualifiers: Cardiac valve disease etiology: etiology unspecified Qualified Code(s): I35.0 - Nonrheumatic aortic (valve) stenosis (4) Tobacco dependence SNOMED Code(s): 59893718 Code(s): F17.200 - NICOTINE DEPENDENCE, UNSPECIFIED, UNCOMPLICATED Status: Chronic Current Visit: Yes (5) Accelerated hypertension SNOMED Code(s): 51063156 Code(s): I10 - ESSENTIAL (PRIMARY) HYPERTENSION Status: Acute Current Visit: Yes - Problem List Review Problem List Initiated/Reviewed/Updated: Yes - My Orders Last 24 Hours: My Active Orders 04/22/18 15:00 hydrALAZINE [Apresoline] 25 mg PO Q8H 04/23/18 09:05 Transfer Patient (Change bed) [ADT] Routine 04/24/18 05:00 BASIC METABOLIC PANEL,BMP [CHEM] Timed - Plan Plan:: ASSESSMENT AND PLAN - Third degree heart block - symptomatic with fatigue and dyspnea on exertion. Status post dual-chamber pacemaker placement. Moderate pain but otherwise doing fairly well. -Discontinue Cardiac monitoring -Postop care per surgical team Accelerated hypertension - systolic blood pressures consistently running 190 or into the 200s. Hydralazine initiated yesterday with good response. -Continue hydrochlorothiazide and valsartan combination -Continue hydralazine Moderate aortic stenosis - long-standing issue, no reason to suspect acute progression of this disease. -Blood pressure management as above Rheumatoid arthritis - chronic, multiple sites involved. She is on immunosuppressive therapy as an outpatient. -Hold immunosuppression for now, restart after hospital discharge Tobacco dependence - she will need education and recommendations regarding cessation. Maintenance issues - - DVT prophylaxis - mechanical - GI prophylaxis - not indicated - Nutrition - regular diet Disposition - I would anticipate discharge to home after the hospital stay, likely tomorrow if stable overnight Jerel Prakash M.D.
[2018-04-23] MEDS: Doxycycline 100 MG Cap PO SCH ×2 (09:44→20:40)
[2018-04-23] MEDS: Hydrochlorothiazide 12.5 MG Cap PO SCH (09:45)
[2018-04-23] MEDS: Montelukast 10 MG Tab PO SCH (20:39)
[2018-04-23] MEDS ORDERED: Ondansetron 4 MG Tab.DIS PO PRN (22:22)
[2018-04-24] MEDS: Acetaminophen 325 MG Tab PO SCH ×2 (04:20→09:03)
[2018-04-24] MEDS: Albuterol/Ipratropium 3.0-0.5 MG/3 ML Neb Soln INH SCH (07:19)
[2018-04-24] MEDS: Formoterol/Mometasone 200-5 MCG 8.8 GM Inhaler IH SCH (07:20)
[2018-04-24 08:52] VITALS: BP 155/43
[2018-04-24] MEDS: Pantoprazole 40 MG Tab.CR PO SCH (09:00)
[2018-04-24] MEDS: Doxycycline 100 MG Cap PO SCH (09:00)
[2018-04-24] MEDS: hydrALAZINE 25 MG Tab PO SCH (09:01)
[2018-04-24] MEDS: Hydrochlorothiazide 12.5 MG Cap PO SCH (09:01)
--- NOTE | 2018-04-24 09:26 | PCM.DCSUM1 ---
Discharge Summary - Hospital Course Brief History: 77-year-old female with history of severe rheumatoid arthritis, essential hypertension and tobacco dependence who presented with fatigue and was found to have complete heart block. She was admitted for permanent pacemaker insertion. - Discharge Data Discharge Date: 04/24/18 Discharge Disposition: DC/Tfer to SNF 03 Condition: Good - Discharge Diagnosis/Problem(s) (1) Complete heart block by electrocardiogram SNOMED Code(s): 392790647 ICD Code: I44.2 - ATRIOVENTRICULAR BLOCK, COMPLETE Status: Acute Current Visit: Yes (2) Rheumatoid arthritis SNOMED Code(s): 70166246 ICD Code: M06.9 - RHEUMATOID ARTHRITIS, UNSPECIFIED Status: Chronic Current Visit: Yes Qualifiers: Rheumatoid arthritis location: multiple sites Rheumatoid factor presence: unspecified presence Qualified Code(s): M06.9 - Rheumatoid arthritis, unspecified (3) Aortic stenosis SNOMED Code(s): 87360504 ICD Code: I35.0 - NONRHEUMATIC AORTIC (VALVE) STENOSIS Status: Chronic Current Visit: Yes Qualifiers: Cardiac valve disease etiology: etiology unspecified Qualified Code(s): I35.0 - Nonrheumatic aortic (valve) stenosis (4) Tobacco dependence SNOMED Code(s): 69919957 ICD Code: F17.200 - NICOTINE DEPENDENCE, UNSPECIFIED, UNCOMPLICATED Status : Chronic Current Visit: Yes (5) Accelerated hypertension SNOMED Code(s): 34088919 ICD Code: I10 - ESSENTIAL (PRIMARY) HYPERTENSION Status: Acute Current Visit: Yes (6) Status post placement of cardiac pacemaker SNOMED Code(s): 765620039, 787771298, 610533477 ICD Code: Z95.0 - PRESENCE OF CARDIAC PACEMAKER Status: Acute Current Visit: Yes - Patient Summary/Data Consults: Consultations 04/21/18 22:03 Consult to Physician [CONS] Routine Consulting Provider: Viraj Rodriguez Call Completed to Consulting Physician: Yes Reason for Consult: 3rd degree heart block, needs pacer Person Notified: HEATH Date Notified: 04/21/18 Special Instructions: pacer placement in the morning @11 Hospital Course: Michell presented to the emergency room with fatigue and dyspnea on exertion. She had been seen in the clinic earlier in the day and told she was in complete heart block and emergency room evaluation was recommended. Repeat EKG in the emergency room confirmed complete heart block. Laboratory studies were essentially unremarkable. Blood pressure was noted to be elevated with systolic pressures near 200. She was admitted to the intensive care unit and general surgery consult for permanent pacemaker placement. Overnight following admission there were no acute issues. Morning after admission she had a successful basement of a dual-chamber pacemaker. Blood pressure remained elevated postoperatively and we did initiate hydralazine. Her blood pressure did respond well to this medication and though it has not normalized it has improved significantly. There were no significant difficulties postoperatively other than some weakness which complicates her rheumatoid arthritis. The decision was made to transition from the hospital to the assisted. The patient will be discharged to the assisted for physical and occupational therapy before returning home. - Patient Instructions Diet: Low Sodium Activity: As Tolerated, No Lifting Over 10 Pounds (left arm x2 weeks) Showering/Bathing: May Shower Wound/Incision Care: Keep Operative Site/Wound Site Clean and Dry Notify Provider of: Fever, Increased Pain, Swelling and Redness, Drainage, Nausea and/or Vomiting Other/Special Instructions: 1. You were in the hospital for management of complete heart block. This was treated with a permanent pacemaker placement. You should not to lift her left arm above her shoulder for the next 2 weeks. You should not lift more than 5 pounds with your left arm. Leave the Steri- Strips in place for approximately 10 days, these will likely slowly curl up and fall off about that time. Follow-up with Dr. Rodriguez on May 05 at 10 AM. 2. During the hospital stay your blood pressure was significantly elevated. We did start to on a new medication called hydralazine. You should take 25 mg 3 times a day to help keep her blood pressure under better control. 3. Referral to physical and occupational therapy for strengthening after pacemaker placement. 4. CODE STATUS - full code. 5. Continue your home medications including methotrexate (7.5 mg weekly on Thursday morning). 6. Please seek medical attention if you develop fever greater than 101 or if you develop redness, increased pain, swelling or drainage from the area around the pacemaker insertion. - Discharge Plan Prescriptions/Med Rec: Acetaminophen [Tylenol] 650 mg PO Q6H PRN #100 tablet PRN Reason: Pain/Fever hydrALAZINE [Apresoline] 25 mg PO TID #90 tablet traMADol [Ultram] 50 mg PO Q4H PRN #50 tablet PRN Reason: Pain Home Medications: Home Meds Folic Acid 1 mg PO DAILY 04/21/15 [History] Methotrexate Sodium [Methotrexate] 3 tab PO WEEKLY 04/21/15 [History] Valsartan/Hydrochlorothiazide [Valsartan-Hctz 320-25 mg Tab] 1 tab PO DAILY 04/30 [History] Fluticasone/Salmeterol [Advair 250-50 Diskus] 1 puff INH BID 04/21/18 [History] Acetaminophen [Tylenol] 650 mg PO Q6H PRN #100 tablet 04/24/18 [Rx] hydrALAZINE [Apresoline] 25 mg PO TID #90 tablet 04/24/18 [Rx] traMADol [Ultram] 50 mg PO Q4H PRN #50 tablet 04/24/18 [Rx] Patient Handouts: Pacemaker Implantation, Adult, Care After Referrals: Mitali Springer PA [Primary Care Provider] - (f/u as needed after the hospital stay) Viraj Rodriguez MD [Physician] - 05/05/18 10:00 am - Discharge Summary/Plan Comment DC Time >30 min.: Yes (40 - New assisted discharge) - Patient Data Vitals - Most Recent: Last Vital Signs Temp 35.9 C 04/24/18 07:00 Pulse 71 04/24/18 07:20 Resp 18 04/24/18 07:00 BP 155/43 H 04/24/18 09:01 Pulse Ox 94 L 04/24/18 07:20 Weight - Most Recent: 39.009 kg I&O - Last 24 hours: Intake & Output 04/23/18 04/24/18 04/24/18 22:59 06:59 14:59 Intake Total 650 200 Output Total 400 200 Balance 250 0 Lab Results - Last 24 hrs: Laboratory Results - last 24 hr 04/24/18 Range/Units 05:25 Sodium 140 (140-148) mmol/L Potassium 4.1 (3.6-5.2) mmol/L Chloride 107 (100-108) mmol/L Carbon Dioxide 26 (21-32) mmol/L Anion Gap 6.7 (5.0-14.0) mmol/L BUN 22 H (7-18) mg/dL Creatinine 1.3 H (0.6-1.0) mg/dL Est Cr Clr Drug Dosing 21.61 mL/min Estimated GFR (MDRD) 40 L (>60) Glucose 90 (74-106) mg/dL Calcium 7.9 L (8.5-10.1) mg/dL Med Orders - Current: Current Medications Acetaminophen (Tylenol) 650 mg PO Q6H [facility] Last Admin: 04/24/18 09:03 Dose: 650 mg Albuterol/Ipratropium (Duoneb 3.0-0.5 Mg/3 Ml) 3 ml INH QIDRT [facility] Last Admin: 04/24/18 07:19 Dose: 3 ml Albuterol/Ipratropium (Duoneb 3.0-0.5 Mg/3 Ml) 3 ml INH ASDIRECTED PRN PRN Reason: * Doxycycline Hyclate (Vibramycin) 100 mg PO BID [facility] Last Admin: 04/24/18 09:00 Dose: 100 mg Hydralazine HCl (Apresoline) 25 mg PO Q8H [facility] Last Admin: 04/24/18 09:01 Dose: 25 mg Hydrochlorothiazide (Hydrochlorothiazide) 12.5 mg PO DAILY [facility] Last Admin: 04/24/18 09:01 Dose: 12.5 mg Mometasone Furoate/Formoterol Fumar (Dulera 200-5 Mcg) 2 puff IH BIDRT [facility] Last Admin: 04/24/18 07:20 Dose: 2 puff Montelukast Sodium (Singulair) 10 mg PO BEDTIME [facility] Last Admin: 04/23/18 20:39 Dose: 10 mg Ondansetron HCl (Zofran) 4 mg IV Q4H PRN PRN Reason: Nausea/Vomiting Ondansetron HCl (Zofran Odt) 4 mg PO Q4H PRN PRN Reason: Nausea/Vomiting Last Admin: 04/23/18 22:31 Dose: 4 mg Pantoprazole Sodium (Protonix) 40 mg PO ACBREAKFAST [facility] Last Admin: 04/24/18 09:00 Dose: 40 mg Tramadol HCl (Ultram) 50 mg PO Q4H PRN PRN Reason: Pain Valsartan (Diovan) 160 mg PO DAILY [facility] Last Admin: 04/24/18 09:00 Dose: 160 mg Discontinued Medications Acetaminophen (Tylenol) 650 mg PO Q4H PRN PRN Reason: Pain (Mild 1-3)/fever Albuterol (Proventil Neb Soln) 2.5 mg NEB Q4H PRN PRN Reason: Shortness Of Breath/wheezing Albuterol/Ipratropium (Duoneb 3.0-0.5 Mg/3 Ml) Confirm Administered Dose 3 ml .ROUTE .STK-MED ONE Stop: 04/22/18 14:29 Last Admin: 04/22/18 14:35 Dose: Not Given Bupivacaine HCl (Marcaine 0.5%) Confirm Administered Dose 50 ml .ROUTE .STK-MED ONE Stop: 04/22/18 09:19 Last Admin: 04/22/18 11:40 Dose: 3.5 ml Fentanyl (Sublimaze) Confirm Administered Dose 100 mcg .ROUTE .STK-MED ONE Stop: 04/22/18 09:55 Folic Acid (Folic Acid) 1 mg PO DAILY [facility] Last Admin: 04/22/18 09:00 Dose: Not Given Hydrochlorothiazide (Hydrochlorothiazide) 25 mg PO DAILY [facility] Last Admin: 04/22/18 08:49 Dose: Not Given Lactated Ringer's (Ringers, Lactated) 1,000 mls @ 75 mls/hr IV ASDIRECTED [facility] Last Admin: 04/21/18 23:19 Dose: 75 mls/hr Potassium Phosphate 30 mmole/ (Sodium Chloride) 260 mls @ 60 mls/hr IV ONETIME ONE Stop: 04/22/18 12:19 Last Admin: 04/22/18 08:00 Dose: 60 mls/hr Magnesium Sulfate 2 gm/ Premix 50 mls @ 12.5 mls/hr IV ONETIME ONE Stop: 04/22/18 11:59 Last Admin: 04/22/18 08:29 Dose: 12.5 mls/hr Cefazolin Sodium/Dextrose 2 gm (/ Premix) 50 mls @ 100 mls/hr IV ONCALL ONE Stop: 04/22/18 11:29 Last Admin: 04/22/18 11:14 Dose: 100 mls/hr Potassium Chloride 20 meq/Lidocaine HCl 2 ml/ Sodium Chloride 112 mls @ 50 mls/ hr IV Q2H [facility] Stop: 04/22/18 10:29 Linezolid (Zyvox) Confirm Administered Dose 300 mls @ as directed .ROUTE .STK- MED ONE Stop: 04/22/18 09:19 Lactated Ringer's (Ringers, Lactated) Confirm Administered Dose 1,000 mls @ as directed .ROUTE .STK-MED ONE Stop: 04/22/18 12:40 Cefazolin Sodium/Dextrose 1 gm (/ Premix) 50 mls @ 100 mls/hr IV Q8H [facility] Stop: 04/23/18 10:29 Last Admin: 04/23/18 10:07 Dose: Not Given Dextrose/Lactated Ringer's (Dextrose 5%-Lactated Ringers) 1,000 mls @ 80 mls/ hr IV ASDIRECTED [facility] Last Admin: 04/23/18 04:42 Dose: 80 mls/hr Lidocaine/Epinephrine (Xylocaine 1% With Epinephrine 1:100,000) Confirm Administered Dose 50 ml .ROUTE .STK-MED ONE Stop: 04/22/18 09:19 Last Admin: 04/22/18 11:40 Dose: 3.5 ml Linezolid (Zyvox) 600 mg IRR .STK-MED ONE Stop: 04/22/18 12:43 Last Admin: 04/22/18 12:42 Dose: 600 mg Midazolam HCl (Versed 1 Mg/Ml) Confirm Administered Dose 2 mg .ROUTE .STK-MED ONE Stop: 04/22/18 09:55 Mometasone Furoate/Formoterol Fumar (Dulera 200-5 Mcg) 2 puff IH BID [facility] Last Admin: 04/21/18 23:31 Dose: 2 inh Ondansetron HCl (Zofran Odt) 4 mg PO Q6H PRN PRN Reason: Nausea able to take PO Ondansetron HCl (Zofran) 4 mg IV Q6H PRN PRN Reason: Nausea/Vomiting Oxycodone HCl (Oxycodone) 5 mg PO Q4H PRN PRN Reason: Pain (moderate 4-6) Polyethylene Glycol (Miralax) 17 gm PO DAILY PRN PRN Reason: Constipation Propofol (Diprivan 20 Ml) Confirm Administered Dose 200 mg .ROUTE .STK-MED ONE Stop: 04/22/18 09:55 Propofol (Diprivan 20 Ml) Confirm Administered Dose 200 mg .ROUTE .STK-MED ONE Stop: 04/22/18 12:39 Senna/Docusate Sodium (Senna Plus) 1 tab PO BID PRN PRN Reason: Constipation Sodium Chloride (Saline Flush) 10 ml FLUSH ASDIRECTED PRN PRN Reason: Keep Vein Open Last Admin: 04/21/18 23:19 Dose: 10 ml Valsartan (Diovan) 320 mg PO DAILY [facility] Last Admin: 04/22/18 08:49 Dose: Not Given - Exam Quality Assessment: Denies: Supplemental Oxygen General: Reports: Alert, Oriented, Cooperative, No Acute Distress Neck: Reports: Supple Lungs: Reports: Normal Respiratory Effort Cardiovascular: Reports: Regular Rate, Regular Rhythm, Murmurs GI/Abdominal Exam: No Distention Extremities: No Pedal Edema, Other (ulna deviation of fingers) Skin: Reports: Warm, Dry Wound/Incisions: Reports: Healing Well, No Drainage, Other (mild bruising around the pacemaker insertion site. No redness or drainage) Psy/Mental Status: Reports: Alert, Normal Affect *Q Meaningful Use (DIS) - VTE *Q VTE Pharmacological Contraindications *Q: Patient Scheduled Surgery
--- NOTE | 2018-04-25 11:00 | PN ---
DATE OF SERVICE: 04/24/2018 The patient has been clinically stable. Pacemaker function has been adequate and the incision is clean without hematoma. No other problems. She will be going to [facility] for a rehab and will follow up with Dr. Rodriguez in [facility] on May 05. Viraj Rodriguez MD /[id number]
--- NOTE | 2018-04-26 08:25 | PN ---
DATE OF SERVICE: 04/23/2018 The patient has been afebrile with stable vital signs. Pacemaker appears to be functioning satisfactorily. As expected, the sensing of the atrial lead is not adequate and so the pacemaker is defaulting into a VVI type mode, which should function actually quite well with this patient. Clinically, she appears to be doing well, and we will go up to a regular diet and saline lock her IV. I think, with her overall frailness, we would like to keep her in the hospital today, work on getting her moving and such, and probably home tomorrow per Dr. Prakash. Viraj Rodrigeuz MD /[id number]
--- NOTE | 2018-04-26 15:00 | OR ---
DATE OF PROCEDURE: 04/22/2018 PREOPERATIVE DIAGNOSIS: Third-degree AV block. POSTOPERATIVE DIAGNOSIS: Third-degree AV block. PROCEDURE: Placement of transvenous dual-chamber cardiac pacemaker (42508). ANESTHESIA: Local plus IV sedation. RUBBER WORKER: MARBELLA Murrell. INDICATION FOR PROCEDURE: The patient presented to the clinic yesterday with quite a bit of lethargy and was noted to have a third-degree AV block. She, therefore, admitted to the intensive care unit and was monitored overnight. She has had a stable blood pressure with escape rhythm of 30 beats per minute noted. Plan is to proceed with a dual-chamber pacemaker insertion. Potential risks including bleeding, infection, possible injury to the vessels, lung or cardiac structures, possible malfunction of the pacemaker and potential cardiopulmonary, septic, or hemorrhagic complications leading to were all reviewed this morning with the patient and she wishes to proceed. DETAILS OF PROCEDURE: The patient was taken to the operating room and placed in a supine position. IV sedation was administered in the event that her escape rhythm might become impaired with manipulation of the right ventricular surfaces of external pacing pads within position, but would not ever at any point required to be turned down. The upper chest and neck areas were then prepped and draped. The left subclavian area was anesthetized with 1% lidocaine and the left subclavian vein cannulated. A guidewire was passed and manipulated from there into the superior vena cava. Some additional local was then injected and transverse infraclavicular incision was made, carried down through the skin and subcutaneous tissue, went through the pectoralis major fascia. A pocket behind the pectoralis major fascia was then bluntly constructed. A 2nd lead was then inserted and the Medtronic leads were then placed over the introducers and peel-away catheters. The right atrial lead was a Medtronic model #53130-08 and the right ventricular lead was a Medtronic model #[id number]. These were both screw-in type leads. Initially, the right ventricular lead was placed. The 3rd location tested and appeared to have adequate stimulation thresholds with the stimulation threshold of 0.4 V, impedance of 746 ohms and R-wave sensing of 5.7 mV. The right atrial lead was somewhat difficult to place based on the way it moved as being placed. The right atrium appeared to be extremely small. Eventually a satisfactory location for the lead was established and this was also the 3rd location tested. The stimulation threshold of the right atrium were 0.6 volts, impedance of 597 ohms and P-wave sensing of 2.5 mV. Both leads were tested with 10 V with no diaphragmatic pacing identified. At that point, the patient converted to satisfactory amount of redundant lead present and the extra lead and pulse generator were then placed in the pocket which had been intermittently irrigated with a Zyvox-containing saline solution throughout the procedure. This was then closed with 2 layers of 3-0 Vicryl stitch deep and a 4-0 Vicryl subcuticular stitch. Dressing was applied. The patient was taken to the recovery room in satisfactory condition . Viraj Rodriguez MD /[id number]
== END 2018-04-24 10:22 | DRG 262 ==
LOC: JP.ED 19:25 → JP.ICU 21:06
PROVIDERS: ADMIT Internal Medicine; ATTEND Internal Medicine
PROC: 02H63JZ Insertion of Pacemaker Lead into Right Atrium, Percutaneous Approach (ICD-10-PCS; principal; 2018-04-22)
PROC: 02HK3JZ Insertion of Pacemaker Lead into Right Ventricle, Percutaneous Approach (ICD-10-PCS; 2018-04-22)
DX: I44.2 Atrioventricular block, complete (principal); I10 Essential (primary) hypertension; M06.9 Rheumatoid arthritis, unspecified; I35.0 Nonrheumatic aortic (valve) stenosis; F17.210 Nicotine dependence, cigarettes, uncomplicated; Z88.6 Allergy status to analgesic agent; Z91.012 Allergy to eggs
CPT/HCPCS: 36415; 71045; 71045-26; 80048; 83735; 84100; 84443; 84484; 85018; 85027; 93005; 94640; 94640-76; 99285-25; A9270-GY; C1898; J0690; J2020; J2250; J2704; J3010; J3475; J3490; J7042; J7050; J7120; J7620